=== PATIENT | male | born 1985 | race Caucasian/White ===

== ENCOUNTER 2022-03-06 10:05 | Emergency (ER) | payer BC ==
[2022-03-06] MEDS ORDERED: Acetaminophen/HYDROcodone 325-5 MG Tab PO ONE (10:33)
[2022-03-06] MEDS ORDERED: Ondansetron 4 MG Tab.DIS PO ONE (10:33)
[2022-03-06] MEDS ORDERED: Ketorolac 60 MG/2 ML SDV IM ONE (12:14)
== END 2022-03-06 14:30 | disposition home or self-care (01) ==
LOC: JD.ED 10:05
DX: I86.1 Scrotal varices (principal); N43.2 Other hydrocele; F17.210 Nicotine dependence, cigarettes, uncomplicated
CPT/HCPCS: 76870; 81003; 93975; 96372; 99284; A9270; J1885